=== PATIENT | male | born 1955 | race Caucasian/White ===

== ENCOUNTER 2017-03-16 14:12 | Outpatient (CLI) | payer BC ==
[2012-05-15 12:53] VITALS: O2SAT 98
== END 2017-03-16 14:13 | disposition home or self-care (01) ==
LOC: CONVCARE 14:12
PROVIDERS: ATTEND Orthopaedic Surgery
DX: M19.072 Primary osteoarthritis, left ankle and foot (principal)
CPT/HCPCS: 73610

== ENCOUNTER 2017-11-16 11:43 | Outpatient (CLI) | payer BC ==
[2012-05-15 12:53] VITALS: O2SAT 98
== END 2017-11-16 11:44 | disposition home or self-care (01) ==
LOC: CONVCARE 11:43
PROVIDERS: ATTEND Orthopaedic Surgery
DX: M25.572 Pain in left ankle and joints of left foot (principal); M19.072 Primary osteoarthritis, left ankle and foot
CPT/HCPCS: 73610; 73630

== ENCOUNTER 2019-01-31 09:06 | Day surgery (SDC) | payer BC ==
[2019-01-31 09:58] VITALS: RESP 16
[2019-01-31] MEDS ORDERED: BUPIVACAINE HCL 0.25% MPF 30 ML SOL INFIL ONE (09:59)
[2019-01-31] MEDS ORDERED: TRIAMCINOLONE ACETONIDE 40 MG/ML SUS ONE (09:59)
[2019-01-31 10:16] VITALS: BP 140/79; PULSE 84; TEMP 98.4; O2SAT 97
== END 2019-01-31 10:36 | disposition home or self-care (01) ==
LOC: SURG 09:06
PROVIDERS: ATTEND Nurse Anesthetist, Certified Registered
DX: M12.9 Arthropathy, unspecified (principal); E11.9 Type 2 diabetes mellitus without complications
CPT/HCPCS: J3300

== ENCOUNTER 2019-03-16 12:40 | Day surgery (SDC) | payer BC ==
[2019-03-16 12:57] VITALS: RESP 16
[2019-03-16] MEDS ORDERED: BUPIVACAINE HCL 0.25% MPF 30 ML SOL INFIL ONE (13:33)
[2019-03-16] MEDS: DEXAMETHASONE SOD PHOS PF 10 MG/ML SOL IJ ONE ×2 (13:41→13:44)
[2019-03-16 13:54] VITALS: BP 121/74; PULSE 78; TEMP 97.2; O2SAT 96
== END 2019-03-16 14:14 | disposition home or self-care (01) ==
LOC: SURG 12:40
PROVIDERS: ATTEND Nurse Anesthetist, Certified Registered
DX: M48.062 Spinal stenosis, lumbar region with neurogenic claudication (principal); E11.9 Type 2 diabetes mellitus without complications
CPT/HCPCS: J1100